=== PATIENT | female | born 1990 | race American Indian/Alaskan Native ===

== ENCOUNTER 2019-04-07 17:45 | Outpatient (CLI) | payer MEDICAID ==
[2019-04-07 18:23] LABS: Bilirubin,Urine NEG (Negative); Blood,Urine NEG (Negative); Color,Urine Colorless (Yellow); Protein,Urine <15 mg/dL mg/dL (Negative); RBC,Urine < 1.0 /HPF (0.0-6.0); Urobilinogen,Urine < 2.0 mg/dL (<2.0); WBC,Urine < 1.0 /HPF (0.0-6.0)
--- NOTE | 2019-04-07 18:42 | Event Note ---
Date: 04/07/19 S: Pt is a 28 yo at 32.6 wks EGA who presents with contractions q7 minutes. She reports positive FM, denies LOF or vaginal bleeding. She states this happened in a previous , and she received an injection that stopped her contractions. She was treated 3 days ago for Trichomonas. O: SVE ft/thick/high FHT cat 1 No contractions noted on NST A: 28 yo at 32.6 wks EGA with reported contractions VSS P: Continue to monitor Collect UA, fFN Administer IV fluids Reevaluate in 2 hours
[2019-04-07] MEDS ORDERED: LACTATED RINGERS 1,000 ML IV SCH (19:00)
[2019-04-07 22:27] VITALS: BP 123/76
== END 2019-04-07 22:00 | disposition home or self-care (01) ==
LOC: TRG 17:45
PROVIDERS: ATTEND Obstetrics & Gynecology
DX: O62.9 Abnormality of forces of labor, unspecified (principal); Z3A.32 32 weeks gestation of pregnancy
CPT/HCPCS: 36415; 59025; 81001; 82731; 96360; 96361; J7120

== ENCOUNTER 2019-05-29 20:24 | Outpatient (CLI) | payer MEDICAID ==
[2019-05-29] MEDS ORDERED: VISTARIL PO STA (22:36)
== END 2019-05-29 23:05 | disposition home or self-care (01) ==
LOC: TRG 20:24
PROVIDERS: ATTEND Obstetrics & Gynecology
DX: O62.9 Abnormality of forces of labor, unspecified (principal); Z3A.40 40 weeks gestation of pregnancy
CPT/HCPCS: 59025; Q0177

== ENCOUNTER 2019-06-03 08:05 | Inpatient (IN) | payer MEDICAID ==
[2019-06-03] MEDS ORDERED: XYLOCAINE 2% INFILTRATI ONE (08:24)
[2019-06-03] MEDS ORDERED: SUBLIMAZE IV PRN (08:24)
[2019-06-03] MEDS ORDERED: NARCAN 0.4 MG/1 ML IV PRN (08:24)
[2019-06-03] MEDS ORDERED: STADOL IV PRN (08:24)
[2019-06-03] MEDS ORDERED: PHENERGAN PO PRN ×2 (08:24→18:25)
[2019-06-03] MEDS ORDERED: ZOFRAN IV PRN ×2 (08:24→18:25)
[2019-06-03] MEDS ORDERED: BRETHINE SUB-Q PRN (08:24)
[2019-06-03] MEDS ORDERED: BRETHINE IVP PRN (08:24)
[2019-06-03] MEDS ORDERED: CERVIDIL VG ONE (08:24)
--- NOTE | 2019-06-03 08:29 | History and Physical Report ---
History of Present Illness Date of examination: 06/03/19 Date of admission: 06/03/19 Chief complaint: IOL for postdates History of present illness: This is a 29 yo at 41 weeks here for IOL for post dates. Past History - Obstetrical History : 4 Medications and Allergies Allergies Allergy/AdvReac Type Severity Reaction Status Date / Time No Known Allergies Allergy Verified 04/07/19 18:05 Home Medications Medication Instructions Recorded Confirmed Last Taken Type Ferrous Sulfate [Feosol 325 MG tab] 325 mg PO TID #120 tablet 09/04/15 Unknown Rx HYDROcodone/APAP 5-325 [[place] 1 each PO Q4HR PRN #30 tablet 09/04/15 Unknown Rx 5/325] Ibuprofen [Motrin 600 MG tab] 600 mg PO Q6H PRN #30 tablet 09/04/15 Unknown Rx Results All other labs normal. Assessment and Plan A/P IUP 41 weeks IOL for post dates labs sent consider cervicil vs cytotec vs low dose pit expect vaginal delivery
[2019-06-03] MEDS ORDERED: PITOCin/NS 30 UNIT/500ML 30 UNITS/500 ML BAG IV SCH (09:00)
[2019-06-03] MEDS ORDERED: PITOCin/NS 20 UNIT/1000ML DRIP 20 UNITS/1,000 ML BAG IV SCH ×2 (09:00→19:00)
[2019-06-03 09:45] LABS: Hematocrit 31.8 % (30.3-42.9); Hemoglobin 10.1 gm/dl (10.1-14.3); Mean Corpuscular HGB Conc 32 % (30-34); Mean Corpuscular Volume 73 fl (79-97); Platelet Count 238 K/mm3 (140-440); Red Blood Count 4.33 M/mm3 (3.65-5.03); Red Cell Distribution Width 18.5 % (13.2-15.2)
[2019-06-03] MEDS: LACTATED RINGERS 1,000 ML IV SCH ×2 (10:00→17:08)
--- NOTE | 2019-06-03 18:23 | Procedure Note ---
OB Delivery Note - Delivery Date of Delivery: 06/03/19 Surgeon: PRAVIN SMITH Estimated blood loss: 500cc - Vaginal Delivery presentation: vertex Delivery position: OA Intrapartum events: precipitous labor- <3hr Delivery induction: cervidil Delivery monitor: external FHT, external uterine Route of delivery: Delivery placenta: spontaneous Delivery cord: 3 umbilical vessels Episiotomy: none Delivery laceration: none Anesthesia: none Delivery comments: Maternal effort resulted in of viable male infant at 1739. Head delivered OA. Shoulders followed easily. Infant to maternal abdomen. Cord clamped and cut. Infant to warmer, with pediatric nurses . Apgars 8 and 9. Placenta delivered spontaneously and intact, 3VC at 1814. Pitocin infusing, fundus firm. NO lacerations . Patient bonding with baby. Tolerated procedure well - A at 1 minute: 8 at 5 minutes: 9 Gender: Male (6 pounds 12 oz)
[2019-06-03] MEDS ORDERED: LANSINOH TP PRN (18:25)
[2019-06-03] MEDS ORDERED: PERCOCET 5/325 PO PRN (18:25)
[2019-06-03] MEDS ORDERED: TUCKS PAD TP PRN (18:25)
[2019-06-03] MEDS ORDERED: BENADRYL PO PRN (18:25)
[2019-06-03] MEDS ORDERED: TYLENOL PO PRN (18:25)
[2019-06-03] MEDS ORDERED: DULCOLAX PR PRN (18:25)
[2019-06-03] MEDS ORDERED: MILK OF MAGNESIA PO PRN (18:25)
[2019-06-03] MEDS ORDERED: PHENERGAN PR PRN (18:25)
[2019-06-03] MEDS ORDERED: NORCO 5/325 PO PRN (18:25)
[2019-06-03] MEDS ORDERED: TORADOL IV PRN (18:25)
[2019-06-03] MEDS ORDERED: SODIUM CHLORIDE FLUSH SYRINGE 10 ML IV SCH (19:00)
[2019-06-03] MEDS ORDERED: MINERAL OIL PO PRN (22:00)
[2019-06-03] MEDS: IBUPROFEN PO SCH (23:14)
[2019-06-04] MEDS: IBUPROFEN PO SCH ×3 (05:27→17:28)
[2019-06-04] MEDS ORDERED: BOOSTRIX IM ONE (06:00)
[2019-06-04 06:18] LABS: Hematocrit 24.2 % (30.3-42.9); Hemoglobin 7.8 gm/dl (10.1-14.3)
[2019-06-04] MEDS ORDERED: PRENATAL VITAMIN PO SCH (10:00)
--- NOTE | 2019-06-04 12:48 | Progress Note ---
Assessment and Plan A/P PPD1 acute anemia with loss of ebl 500 iron initiated d/c home tomorrow Subjective - Subjective Date of service: 06/04/19 Principal diagnosis: Interval history: This is a 29 yo at 41 weeks here for IOL for post dates. Patient reports: appetite normal, voiding normally, pain well controlled, ambulating normally [place]: doing well Objective - Vital Signs Latest vital signs: Vital Signs Temp Pulse Resp BP BP Pulse Ox 06/04/19 11:46 98.3 F 77 20 113/75 98 06/04/19 07:24 98.1 F 84 16 105/63 99 06/04/19 04:47 97.9 F 75 20 94/56 99 06/03/19 20:20 98.4 F 98 H 20 106/69 98 06/03/19 19:35 98.9 F 86 18 105/62 06/03/19 19:27 86 105/62 06/03/19 19:17 88 115/62 06/03/19 19:07 90 114/66 06/03/19 18:57 87 109/62 06/03/19 18:47 99 F 85 18 110/65 110/65 06/03/19 18:30 80 18 108/63 06/03/19 18:28 108/63 06/03/19 18:18 72 115/65 06/03/19 18:15 72 18 108/63 06/03/19 17:40 96 H 135/74 06/03/19 16:40 93 H 121/77 06/03/19 15:40 85 115/69 06/03/19 15:36 85 18 113/67 113/67 06/03/19 14:44 99.1 F 78 18 111/69 06/03/19 14:40 78 111/69 06/03/19 14:01 97.8 F 16 Intake and Output 06/03/19 06/04/19 06/04/19 23:59 07:59 15:59 Intake Total 891.667 240 120 Output Total 400 600 Balance 491.667 -360 120 Intake: IV 891.667 Lactated Ringers 1,000 ml 891.667 @ 125 mls/hr IV DIRECT [facility] Rx#:[id number] Oral 240 120 Output: Urine 400 600 Void 400 600 Other: Total, Intake Amount 240 120 Total, Output Amount 400 200 # Voids Void 1 Estimated Blood Loss 500 - Exam Breasts: Present: normal Cardiovascular: Present: Regular rate, Normal S1 Lungs: Present: Clear to auscultation, Normal air movement Abdomen: Present: normal appearance, soft, normal bowel sounds. Absent: distention, tenderness, guarding Vulva: both: normal Uterus: Present: normal, firm, fundal height below umbilicus. Absent: bogginess, tenderness Extremities: Present: normal Deep Tendon Reflex Grade: Normal +2 Incision: Present: normal - Labs Labs: Abnormal lab results 06/04/19 Range/Units 06:02 Hgb 7.8 L (10.1-14.3) gm/dl Hct 24.2 L D (30.3-42.9) %
--- NOTE | 2019-06-04 12:50 | Discharge Summary ---
Providers - Providers Date of Admission: 06/03/19 18:20 Date of discharge: 06/05/19 Attending physician: LUISA PASTRANA Primary care physician: LUISA PASTRANA Hospitalization Reason for admission: induction of labor Delivery: Episiotomy: none Laceration: none Incision: normal Other procedures: none Discharge diagnosis: IUP at term delivered [place] baby: male Hospital course: Routine IOL for postdates. Delivered a viable male. EBL 500 cc. iron for anemia of 7.8 from 10 Condition at discharge: Good Disposition: DC-01 TO HOME OR SELFCARE Plan - Provider Discharge Summary Additional instructions: [] Smoking cessation referral if applicable(refer to patient education folder for contact #) [] Refer to [facility] Booklet Call your doctor immediately for: * Fever > 100.5 * Heavy vaginal bleeding ( >1 pad per hour) * Severe persistent headache * Shortness of breath * Reddened, hot, painful area to leg or breast * Drainage or odor from incision. * Keep incision clean and dry at all times and follow doctor's instructions regarding bathing/showering - Follow up plan Follow up: LUISA PASTRANA MD [Primary Care Provider] - 7 Days
[2019-06-04 16:36] VITALS: BP 104/65
[2019-06-04] MEDS ORDERED: M-M-R II VACCINE SUB-Q ONE (19:25)
== END 2019-06-04 19:35 | disposition home or self-care (01) | DRG 775 ==
LOC: TRG 08:05 → LD 08:17 → TRG 18:18 → LD 18:20 → OB 20:25
PROVIDERS: ADMIT Obstetrics & Gynecology; ATTEND Obstetrics & Gynecology
PROC: 10E0XZZ Delivery of Products of Conception, External Approach (ICD-10-PCS; principal; 2019-06-03)
PROC: 3E0P7VZ Introduction of Hormone into Female Reproductive, Via Natural or Artificial Opening (ICD-10-PCS; 2019-06-04)
DX: O48.0 Post-term pregnancy (principal); Z37.0 Single live birth; O62.3 Precipitate labor; Z3A.41 41 weeks gestation of pregnancy; O90.81 Anemia of the puerperium
CPT/HCPCS: 36415; 59200; 85014; 85018; 85027; 86592; 86850; 86900; 86901; G0378; A6250; J2590; J3010; J7120